=== PATIENT | female | born 1990 | race African-American/Black ===

== ENCOUNTER → 2024-08-31 08:42 | Outpatient (CLI) | payer OTHER, SELFPAY ==
[2024-08-31 15:06] LABS: Urine N gonorrhoeae NOT DETECTED
[2024-08-31 15:07] LABS: Urine Chlamydia NOT DETECTED
== END ==
PROVIDERS: Visit Provider Specialist
DX: Z34.81 Encounter for supervision of other normal pregnancy, first trimester (principal); Z3A.13 13 weeks gestation of pregnancy; Z11.3 Encounter for screening for infections with a predominantly sexual mode of transmission
CPT/HCPCS: 87491; 87591

== ENCOUNTER → 2024-08-31 09:01 | Outpatient (CLI) | payer OTHER, SELFPAY ==
[2024-08-31 10:35] LABS: Natera Collection Specimen Collected
[2024-08-31 10:44] LABS: Add Manual Diff / Slide Review NO; Basophils Absolute Auto 0 /uL (0-100); Basophils Percent Auto 0.3 % (0-2); Eosinophils Absolute Auto 100 /uL (0-450); Hematocrit 35.4 % (36-46); Hemoglobin 11.3 g/dL (12.0-16.0); Lymphocytes Absolute Auto 1600 /uL (1100-4500); Mean Corpuscular HGB Conc 31.8 % (30-36); Mean Corpuscular Hemoglobin 24.1 PG (26-34); Mean Corpuscular Volume 75.6 fL (80-100); Monocytes Absolute Auto 400 /uL (0-900); Monocytes Percent Auto 6.4 % (3-14); Neutrophils Absolute Auto 4400 /uL (1500-7000); Neutrophils Percent Auto 67.3 % (50-75); Platelet Count 270 X10^3/uL (150-400); Red Blood Cell Count 4.68 X10^6/uL (4.0-5.2); Red Cell Distribution Width 14.4 % (11.6-14.8); White Blood Cell Count 6.5 X10^3/uL (4.5-11.0)
[2024-08-31 11:05] LABS: Alanine Aminotransferase 13 IU/L (<35); Aspartate Aminotransferase 25 IU/L (14-36); BUN Creatinine Ratio 9.1 (6-22); Blood Urea Nitrogen 4 mg/dL (7-17); Estimated Glomerular Filt Rate > 60 mL/min (>60); Uric Acid 3.5 mg/dL (2.5-6.2)
[2024-09-01 05:15] LABS: RPR Screen Non Reactive (Non Reactive)
[2024-09-01 08:36] LABS: Varicella IgG Antibody Reactive (Non Reactive)
[2024-09-01 15:24] LABS: HIV 1 & 2 Ab/Ag 4th Gen Combo NEGATIVE (NEGATIVE); Hep C Virus Ab w/Reflex Quant NEGATIVE s/c (NEGATIVE); Hepatitis B Surface Antigen NEGATIVE s/c (NEGATIVE)
== END ==
PROVIDERS: Referring Provider Family Medicine; Visit Provider Family Medicine
DX: O09.521 Supervision of elderly multigravida, first trimester (principal); O09.299 Supervision of pregnancy with other poor reproductive or obstetric history, unspecified trimester; O30.009 Twin pregnancy, unspecified number of placenta and unspecified number of amniotic sacs, unspecified trimester; Z11.3 Encounter for screening for infections with a predominantly sexual mode of transmission; Z3A.13 13 weeks gestation of pregnancy
CPT/HCPCS: 80055; 82565; 84450; 84460; 84520; 84550; 86787; 86803; 86850; 86900; 86901; 87389; 87491; 87591

== ENCOUNTER → 2024-09-29 09:12 | Outpatient (CLI) | payer OTHER, SELFPAY ==
[2024-09-30 14:40] LABS: Candida species Positive (Negative); Gardnerella vaginalis Negative (Negative); Trichomoas vaginalis Negative (Negative)
== END ==
PROVIDERS: Visit Provider Obstetrics & Gynecology
DX: O30.041 Twin pregnancy, dichorionic/diamniotic, first trimester (principal); N89.8 Other specified noninflammatory disorders of vagina; Z3A.17 17 weeks gestation of pregnancy
CPT/HCPCS: 87480; 87510; 87660

== ENCOUNTER → 2024-10-12 13:31 | Outpatient (CLI) | payer OTHER, SELFPAY ==
--- NOTE | 2024-10-12 13:32 | DI.US.S_ITS ---
PROCEDURE: US OB >= 14 WK FETUS ADD GEST INDICATIONS: 20 Week Anatomy Scan OUTSIDE/PRIOR DATING DATA: Dating not available at time of dictation. Possible UD of 03/05/2025 based on 1st ultrasound. TECHNIQUE: Real-time scanning was performed of the fetuses, with image documentation and biometric measurements. Endovaginal scanning: Not performed COMPARISON: [facility], US, US OB >= 14 WEEKS FETUS, 09/29/2024, 8:58. FINDINGS: General: An intrauterine dichorionic-diamniotic twin is present, as evidenced by separate placentas, differing sexes, or an intervening membrane of greater than 2 mm. Maternal cervical canal: 5.3 cm long. Normal lower limit is 2.5 cm. FETUS A: Fetus is located on the maternal right side, and is in vertex presentation. Largest amniotic fluid pocket: 6.5 cm, normal is 2-8 cm. Placental position is posterior , without previa. heart rate: 175 beats per minute. biometrics: Biparietal diameter: 4.6 cm, 20 weeks 0 days Head circumference: 16.6 cm, 19 weeks 2 days Abdominal circumference: 14.9 cm, 20 weeks 1 day Femur length: 3.0 cm, 19 weeks 2 days Clinically estimated gestational age: 19 weeks 4 days Composite gestational age from present scan: 19 weeks 5 days Estimated weight and percentile: 309 g, 54 percentile FETUS B: Fetus is located on the maternal left side, and is in vertex presentation. Largest amniotic fluid pocket: 8.7 cm, normal is 2-8 cm. Placental position is posterior, without previa. heart rate: 132 beats per minute. biometrics: Biparietal diameter: 4.6 cm, 20 weeks 0 days Head circumference: 19.6 cm, 19 weeks 4 days Abdominal circumference: 15.0 cm, 20 weeks 0 days Femur length: 3.0 cm, 19 weeks 2 days Clinically estimated gestational age: 19 weeks 4 days Composite gestational age from present scan: 19 weeks 6 days Estimated weight and percentile: 312 g, 57 percentile IMPRESSION: Dichorionic, diamniotic large gestational . Estimated weight of twin a is 309 g, corresponding to 54 percentile. Estimated weight of twin B is 312 g, corresponding to 57 percentile. We strive to produce accurate, complete, and clear reports of imaging services. To assist us in improving patient care, this report was composed using standard report templates and voice recognition software. Therefore, it may contain abnormal punctuation, insertions and/or omissions. Occasional wrong-word or sound-alike substitutions may occur. Though we review the report and make efforts to correct it, we do recommend that the report be read carefully in proper context to recognize any text inaccuracies. Dictated by: Waldemar Barrera M.D. on 10/13/2024 at 15:27 Approved by: Waldemar Barrera M.D. on 10/13/2024 at 15:46
--- NOTE | 2024-10-12 15:08 | PC.NURSE ---
Rapid response called while patient was flat on her back during an ultrasound. rapid repsonse team arrived . pt was clammy and sweaty. initial vital sings Heart rate 61, resp rate 14, sats 99 percent on room air. blood glucose 90. repeat bp 103/59. Pt was sat up and started to feel better. Oj given to patient. pt declined being seen in the ER. AAOX4
== END ==
LOC: US 13:32
PROVIDERS: Referring Provider Obstetrics & Gynecology; Visit Provider Obstetrics & Gynecology
DX: O30.042 Twin pregnancy, dichorionic/diamniotic, second trimester (principal); Z3A.19 19 weeks gestation of pregnancy
CPT/HCPCS: 76811; 76812

== ENCOUNTER → 2024-11-18 09:50 | Outpatient (CLI) | payer OTHER, SELFPAY ==
[2024-11-18 11:29] LABS: Hemoglobin 10.3 g/dL (12.0-16.0)
[2024-11-18 11:46] LABS: GTT (PREG) 1 Hour PP 50gm Dose 89 mg/dL (76-139)
== END ==
PROVIDERS: Referring Provider Obstetrics & Gynecology; Visit Provider Obstetrics & Gynecology
DX: Z34.82 Encounter for supervision of other normal pregnancy, second trimester (principal); Z3A.26 26 weeks gestation of pregnancy
CPT/HCPCS: 36415; 82950; 85014; 85018

== ENCOUNTER → 2025-02-03 10:34 | Outpatient (CLI) | payer OTHER, SELFPAY ==
[2025-02-04 12:23] LABS: Strep Grp B PCR POS for Grp B Strep
== END ==
PROVIDERS: Visit Provider Obstetrics & Gynecology
DX: Z36.85 Encounter for antenatal screening for Streptococcus B (principal)
CPT/HCPCS: 87653

== ENCOUNTER 2025-02-03 11:07 | Outpatient (CLI) | payer OTHER, SELFPAY | END 2025-02-03 11:55 | disposition home or self-care (01) | LOC: LABOR 11:26 → OB 13:06 | PROVIDERS: Referring Provider Obstetrics & Gynecology; Visit Provider Obstetrics & Gynecology | DX: O09.523 Supervision of elderly multigravida, third trimester (principal); O30.003 Twin pregnancy, unspecified number of placenta and unspecified number of amniotic sacs, third trimester; Z3A.35 35 weeks gestation of pregnancy; Z36.85 Encounter for antenatal screening for Streptococcus B | CPT/HCPCS: 59025; 87653; G0378; G0379 ==

== ENCOUNTER 2025-02-22 06:33 | Inpatient (IN) | payer OTHER, SELFPAY ==
[2025-02-22 07:01] LABS: Add Manual Diff / Slide Review NO; Basophils Absolute Auto 100 /uL (0-100); Basophils Percent Auto 0.9 % (0-2); Eosinophils Absolute Auto 100 /uL (0-450); Eosinophils Percent Auto 1.1 % (2-4); Hematocrit 35.9 % (36-46); Hemoglobin 11.5 g/dL (12.0-16.0); Lymphocytes Absolute Auto 1900 /uL (1100-4500); Lymphocytes Percent Auto 30.2 % (25-40); Mean Corpuscular Hemoglobin 24.3 PG (26-34); Monocytes Absolute Auto 600 /uL (0-900); Monocytes Percent Auto 9.3 % (3-14); Neutrophils Absolute Auto 3600 /uL (1500-7000); Neutrophils Percent Auto 58.5 % (50-75); Platelet Count 143 X10^3/uL (150-400); Red Blood Cell Count 4.72 X10^6/uL (4.0-5.2); Red Cell Distribution Width 14.1 % (11.6-14.8); White Blood Cell Count 6.1 X10^3/uL (4.5-11.0)
[2025-02-22 07:12] VITALS: BP 126/86
--- NOTE | 2025-02-22 08:25 | SUR.OPER ---
Supine on Padded OR bed, head on pillow, safety belt at thigh, arms secured on padded arm boards at <90 degrees abduction. Bump under right buttock. Legs uncrossed with pillow under knees, gel pad to heels, tape over blanket to lower legs.
--- NOTE | 2025-02-22 08:39 | PM.PREOP ---
Pre-operative Note Interval Note History & Physical reviewed/Exam performed by Physician: Yes Changes to H&P: No
--- NOTE | 2025-02-22 08:39 | PM.OBHP.IH.1 ---
OB HPI Date/Time Date of admission: 02/22/25 Date Patient Seen: 02/22/25 Time Patient Seen: 08:39 History of Present Condition Chief complaint: Repeat MINAL Calculator Estimated Delivery Date Method Current WG Current Estimate 03/04/25 LMP (Certain) 38w 4d Other Estimates 03/05/25 Ultrasound #1 38w 3d # 2 Estimated Gestational Age (weeks): 38 : 6 Para: 3 care: good care, initiated at week # (1), number of visits (10) and pounds weight gain (31) Dating criteria OB: LMP confirmed by 1st trimester US Ultrasounds: normal mid trimester US Obstetrical complications: none Medical complications OB: none External History : 6 Para: 3 Estimated Date of Delivery: 03/04/25 Narrative: 34-year-old 6 para 3 EDC 03/04 at 38 weeks 4 days with dichorionic diamniotic twin gestation here for repeat section Indications Operative indications ( section): previous uterine surgery Preadmission Labs Last OB Lab Results: Blood Type O Positive 02/22/25 06:50 Antibody Screen Negative 02/22/25 06:50 Hct 35.9 % (36-46) L 02/22/25 06:50 Hgb 11.5 g/dL (12.0-16.0) L 02/22/25 06:50 Hep Bs Antigen Negative s/c (NEGATIVE) 08/31/24 09:35 Hepatitis C Antibody Negative s/c (NEGATIVE) 08/31/24 09:35 Rubella Antibody 256.0 IU/mL (>15) 08/31/24 09:35 VZV IgG Antibody Reactive (Non Reactive) 08/31/24 09:35 Glucose 1 Hr 50 gm 89 mg/dL (76-139) 11/18/24 11:07 Group B Strep (PCR) Pos for grp b strep H 02/03/25 10:34 -: Chlamydia screen: negative and Gonorrhea screen: negative Genetic Screens: Cell-free DNA: Normal Prior (ies) Past Pregnancies Del. Date GA/Weeks Labor Lgth Wt Sex Route Outcome Anesthesia Place Delv Breastfeed Preg Comp Name 11/23/11 8 elective 07/19/16 38.5 18 7 lb 7 oz Male live - full term epidural [place] 22 months none Hans 08/28/18 40+ 18 6 lb 8 oz Female vaginal live - full term epidural [facility] 20 months none [place] 01/21/19 ~8 elective 10/03/20 37.3 Male live - full term spinal [facility] 6 and 13 months multiple gestation induced hyper- pre-eclampsia other [place] and [place] Delivery Date: 11/23/11 Last Updated by: Nika Harris RN Rx only, no complications Delivery Date: 07/19/16 Last Updated by: Nika Harris RN C/S for OP and FTP Delivery Date: 08/28/18 Last Updated by: Nika Harris RN Delivery Date: 01/21/19 Last Updated by: Nika Harris RN Rx only, no complications Delivery Date: 10/03/20 Last Updated by: Nika Harris RN HTN onset 37 wk->semi-urgent C/S, preeclampsia onset 1 week PP admitted for 5 days, resolved spontaneously ~5-7 days after DC. Baby A 5lb6oz and 5lb4oz; anxiety Hx # Term Pregnancies: 3 Hx # Pregnancies: 0 Number of Living Children: 4 Multiple births: 1 Spontaneous abortions: 2 Ectopic pregnancies: 0 Evaluation Evaluation Baseline heart rate: 120 (Both) Variability: Moderate (11-25) (Both) monitor accelerations: Present (Both) Monitor Decelerations: Absent (Both) Contraction Frequency (minutes): 10 Uterine Contraction Intensity: Mild Category of Tracing: Reactive Status: Category l PFSH Surgical History (Updated 08/31/24 @ 09:03 by Khushbu Langford MD) Previous section History of appendectomy Family History (Updated 08/18/24 @ 09:37 by Nika Harris RN) Mother Hypertension Father Hypertension Grandfather Diabetes mellitus Social History marital status: number of children: 4 household members: spouse and children lives independently: Yes housing: house pets and animals: No education level: college (bachelor's degree) occupational status: unemployed current occupational exposures/hazards: No special tommy needs: No travel history: over 6 months ago seatbelt use: always water heater temp set < 120 deg: Yes working smoke detector in home: Yes fire extinguisher in home: No carbon monox detector in home: Yes firearms in home: No do you feel safe at home: Yes Smoking Status: Never smoker second hand exposure: No alcohol intake: former (rarely when not ) substance use type: does not use during the past year weight has: remained stable well-balanced diet: daily or most days daily servings fruits/ve or more times/day caffeine: Yes (aware of 200mg limit) Type(s) of exercise: walking frequency: daily Meds Home Medications and Allergies Home Medications Medication Instructions Recorded Confirmed Type aspirin 81 mg tablet,delayed 81 mg PO DAILY 08/18/24 02/17/25 History release vitamin-ferrous sulfate tab PO 08/18/24 02/17/25 History 27 mg iron-folic acid 0.8 mg tablet fluconazole 150 mg tablet 150 mg PO ONCE #1 tab 11/10/24 02/17/25 Rx Allergies Allergy/AdvReac Type Severity Reaction Status Date / Time No Known Drug Allergies Allergy Verified 02/22/25 07:20 Review of Systems Review of Systems Narrative: Patient denies headaches, scotomata, epigastric pain. Good movement. No leakage of fluid. No vaginal bleeding. OB Exam Vital signs Blood Pressure: 126/86 Pulse Rate: 83 Temperature: 98.3 F Narrative Exam Narrative: HEENT exam within normal limits. Lungs are clear to auscultation percussion. Heart is regular rate and rhythm no S3-S4 or murmurs. Abdomen is gravid. Extremities without edema and nontender Objective Labs 02/22/25 06:50 Labs: Laboratory Results - last 24 hr 02/22/25 06:50 WBC 6.1 RBC 4.72 Hgb 11.5 L Hct 35.9 L MCV 76.0 L MCH 24.3 L MCHC 32.0 RDW 14.1 Plt Count 143 L Neut % (Auto) 58.5 Lymph % (Auto) 30.2 [place] % (Auto) 9.3 Eos % (Auto) 1.1 L Baso % (Auto) 0.9 Neut # (Auto) 3600 Lymph # (Auto) 1900 [place] # (Auto) 600 Eos # (Auto) 100 Baso # (Auto) 100 Blood Type O Positive Antibody Screen Negative Assessment and Plan Assessment and Plan Assessment and Plan narrative: 38 weeks 4 days' twin gestation with prior section for repeat low-transverse section Time-Based Coding :: [TOTAL MINUTES] spent with patient and on the chart (including review of chart, obtaining history, exam, reviewing outside data, placing orders, documenting exam and treatment plan, and counseling patient) on [DATE].
[2025-02-22 08:44] VITALS: BP 126/86; PULSE 83; TEMP 36.8
[2025-02-22] MEDS: CEFAZOLIN 2 GM/100 ML PREMIX 100 ML IV (09:00)
--- NOTE | 2025-02-22 09:53 | SUR.OPER ---
Viable twin babies born. Baby A born at 0928 on 02/22/2025. Baby B born at 0932 on 02/22/2025.
--- NOTE | 2025-02-22 10:11 | P.OP_ITS ---
Operative Date/Time/Diagnoses Date of procedure: 02/22/25 Time of procedure: 10:12 Pre-op diagnosis: 38 week gestation with dichorionic diamniotic twin gestation and prior section Post-op diagnosis: same Procedure & Clinicians Procedure: Repeat low-transverse section Same procedure as scheduled: Yes Indications: Term twin gestation with prior section Surgeon: Khushbu Langford Senior Training And Development Rep: Michelle Teresa Reason for Senior Training And Development Rep: Incision traction, fundal pressure, suturing half the incision Anesthesia Type: Spinal Operative Notes Findings: Normal tubes, ovaries, uterus. Viable male and female infants. Closure Type: primary Specimen(s): cord blood Intraoperative meds administered: Pitocin Applied: Catheter (Avelar) Estimated Blood Loss (mL): 1,000 Procedure in detail: The patient was brought to the operating room where she underwent a spinal for anesthesia. She was placed in a supine position with a left lateral tilt. A Avelar catheter was placed. Pulsatile stockings were placed and functional throughout the case. 2 g of Ancef were given IV prior to the incision. Warming was in place. The patient was prepped and draped in usual sterile fashion. A low transverse incision was made with a scalpel removing the 2 prior incisions and the incision was carried down to the fascial layer which was incised transversely with scissors. The medical assistant float did her side of the incision. The midline attachments are superiorly and inferiorly. Some bleeding was controlled Bovie. The rectus muscles were in the midline and the peritoneal incision was made with no damage to internal structures. The peritoneum was incised and superiorly and inferiorly. The incision was stretched with the surgeon and medical assistant float placing traction. Bladder blade was placed and a bladder flap was developed and the bladder held away from the lower uterine segment. An incision was made in the uterus with the scalpel and the incision was extended with stretching. Baby A, male fetus, bag of water was ruptured for clear fluid and head was elevated out of the abdomen and with fundal pressure by the medical assistant float the baby was delivered. The infant was bulb suctioned for clear fluid. After 1 minute of delayed cord clamping the infant was handed off to the warmer. Baby B, female fetus, was pushed externally to vertex position and the bag of water ruptured. Due to some dystocia with the incision a vacuum was placed on the infant to deliver the . After 1 minute delayed cord clamping the cord was cut and the infant handed off to the warmer. Cord bloods were obtained from each cord. The placenta delivered spontaneously with traction. The uterus was cleaned with clean laps. The uterine incision was closed in 2 layers of 0 chromic suture the first a running locking layer the second an imbricating layer. The medical assistant float was helping to expose the incision. Some bleeding was controlled with 2 0 Vicryl suture. The bladder peritoneum was repaired with 2-0 Vicryl suture. The gutters were cleaned of any remaining fluids and ovaries and tubes were observed to be normal. Adequate hemostasis was noted. Bleeding controlled with the Bovie and suture. The perineum was closed with 2-0 Vicryl suture. The fascia layer was closed with 0 Vicryl suture with 2 stitches. The medical assistant float repairing half the incision with helping to retract and expose the incision for the other half. The incision was irrigated and adequate hemostasis noted. The incision was closed with interrupted 3-0 Vicryl sutures and then a subcuticular stitch of 4-0 Vicryl suture. Steri-Strips were placed. The uterus was massaged to remove any clots. The patient went to recovery room in good condition. Counts of instruments and sponges were correct. Dr. Teresa was present throughout the case to assist with retraction, fundal pressure to deliver the infant, and suturing half the fascia. [place] Baby 1: Delivery Date: 02/22/25 Delivery Time: 09:28 Gender: Male Presentation: vertex Cord Vessel Description: Nuchal Cord score (1 min): 9 score (5 min): 9 2: Delivery Date: 02/22/25 Delivery Time: 09:32 Gender: Female Presentation: vertex Placental Delivery Description: Expressed score (1 min): 7 score (5 min): 9 Post-operative Condition: stable Disposition: other ( Center) Aftercare: routine postop
[2025-02-22 10:46] VITALS: BP 109/78; PULSE 86; RESP 20; TEMP 36.2; O2SAT 100
[2025-02-22 10:52] VITALS: BP 113/67; PULSE 87; RESP 25; O2SAT 100
[2025-02-22 10:57] VITALS: BP 96/66; PULSE 89; RESP 20; TEMP 36.2; O2SAT 100
[2025-02-22] MEDS: KETOROLAC 30 MG/ML VIAL IV (20:35)
[2025-02-22] MEDS: diphenhydrAMINE 50 MG/ML VIAL 25 MG IV (20:40)
[2025-02-23] MEDS: KETOROLAC 30 MG/ML VIAL IV (05:45)
[2025-02-23 06:45] LABS: Add Manual Diff / Slide Review NO; Basophils Absolute Auto 100 /uL (0-100); Basophils Percent Auto 0.5 % (0-2); Eosinophils Absolute Auto 100 /uL (0-450); Eosinophils Percent Auto 0.7 % (2-4); Hematocrit 30.3 % (36-46); Hemoglobin 9.7 g/dL (12.0-16.0); Lymphocytes Absolute Auto 2000 /uL (1100-4500); Lymphocytes Percent Auto 17.3 % (25-40); Mean Corpuscular HGB Conc 32.1 % (30-36); Mean Corpuscular Hemoglobin 24.2 PG (26-34); Mean Corpuscular Volume 75.4 fL (80-100); Monocytes Absolute Auto 900 /uL (0-900); Monocytes Percent Auto 7.7 % (3-14); Neutrophils Absolute Auto 8600 /uL (1500-7000); Neutrophils Percent Auto 73.8 % (50-75); Platelet Count 145 X10^3/uL (150-400); Red Blood Cell Count 4.02 X10^6/uL (4.0-5.2); Red Cell Distribution Width 14.4 % (11.6-14.8); White Blood Cell Count 11.6 X10^3/uL (4.5-11.0)
--- NOTE | 2025-02-23 07:48 | PM.OBPN.1 ---
Subjective - OB Subjective Patient comments: pain well controlled and tolerating diet [place] baby status: doing well and nursing well [place] feeding status: exclusively breast feeding Date Patient Seen: 02/23/25 Time Patient Seen: 07:49 Interval history: Postoperative day 1 repeat section. The patient is ambulatory. No nausea. She is . Exam Vital Signs (past 8 hours): Blood pressure 117/77, pulse 57, temperature 36.2? Oxygen Delivery Method Room Air Narrative Exam Narrative: Abdomen is soft, nontender. Uterus is firm, U + 2, nontender. Dressing is clean, dry, intact. There is some evidence of some bleeding on the Aquacel dressing but stable. Objective Labs 02/23/25 06:30 Labs: Laboratory Results - last 24 hr 02/23/25 06:30 WBC 11.6 H D RBC 4.02 Hgb 9.7 L Hct 30.3 L MCV 75.4 L MCH 24.2 L MCHC 32.1 RDW 14.4 Plt Count 145 L Neut % (Auto) 73.8 Lymph % (Auto) 17.3 L [place] % (Auto) 7.7 Eos % (Auto) 0.7 L Baso % (Auto) 0.5 Neut # (Auto) 8600 H Lymph # (Auto) 2000 [place] # (Auto) 900 Eos # (Auto) 100 Baso # (Auto) 100 Assessment & Plan Assessment and Plan (1) Delivery by section using transverse incision of lower segment of uterus: Status: Acute (2) Dichorionic diamniotic twin gestation: Status: Acute (3) History of section complicating : Status: Acute Assessment and plan: Patient is doing well post section. Plan plan OB: routine postop care Time-Based Coding :: [TOTAL MINUTES] spent with patient and on the chart (including review of chart, obtaining history, exam, reviewing outside data, placing orders, documenting exam and treatment plan, and counseling patient) on [DATE].
[2025-02-23] MEDS: IBUPROFEN 600 MG TABLET PO ×3 (10:34→22:23)
[2025-02-23] MEDS: ACETAMINOPHEN 325 MG TABLET 650 MG PO ×3 (10:35→22:23)
[2025-02-23] MEDS: DOCUSATE 100 MG CAPSULE PO (10:35)
[2025-02-23] MEDS: PRENATAL VIT,CALC/IRON/FOLIC 1 TABLET 1 TAB PO (10:35)
[2025-02-23] MEDS: FERROUS SULFATE 325 MG TABLET PO (10:35)
[2025-02-23] MEDS: LANOLIN OINT 7 GM 1 APPLIC TOP (10:36)
[2025-02-23] MEDS: OXYCODONE IR 5 MG TABLET PO (23:31)
[2025-02-24] MEDS: IBUPROFEN 600 MG TABLET PO (05:44)
--- NOTE | 2025-02-24 07:51 | P.DS_ITS ---
Discharge Providers Provider Date of admission: 02/22/25 06:33 Discharge Date: 02/24/25 Primary care physician: Shameka Kevin MD Consults: 02/22/25 11:10 Consult to Support Group Manager Routine Comment: Discharge provider: Khushbu Langford MD Summary Hospital Course Date Patient Seen: 02/24/25 Time Patient Seen: 07:53 Diagnoses: 38 week twin gestation with prior sections Hospital Course: Patient underwent a repeat low-transverse section on 02/22/25. The viable male and female infants are doing well. She is . She is passing gas and urinating and ambulating well. She is having incisional pain. Mild lochia. Peripartum Data Infant Delivery Method: Section (Repeat) complications: none 1: Gender: Male Disposition of : home 2: Gender: Female Disposition of : home Discharge Diagnosis (1) Delivery by section using transverse incision of lower segment of uterus: Status: Acute (2) Dichorionic diamniotic twin gestation: Status: Acute (3) History of section complicating : Status: Acute Status at Discharge Cognitive/behavioral status at discharge: oriented Functional status at discharge: independent ambulation Overall status at discharge: patient is progressing back to baseline Time Spent with Patient Time attestation: Total time spent providing and/or coordinating discharge services: Time spent: Less than 30 minutes Objective Labs 02/23/25 06:30 Exam Vital Signs (past 8 hours): Blood pressure 109/70, pulse of 66, temperature 36.4? Oxygen Delivery Method Room Air Narrative Exam Narrative: Abdomen is soft, nontender. Uterus is firm, U +1, nontender. Dressing is clean, dry, intact. Mild lochia. Extremities with trace edema and nontender. Discharge Plan Discharge Plan Patient Disposition: Home Discharge orders & Medications Prescriptions: New ferrous sulfate 325 mg (65 mg iron) Tablet 325 mg PO DAILY Qty: 30 0RF docusate sodium 100 mg Capsule 100 mg PO DAILY Qty: 20 0RF ibuprofen 600 mg Tablet 600 mg PO Q6H Qty: 30 0RF oxycodone 5 mg Tablet 5 mg PO Q4H PRN (Reason: Pain, Moderate (4-6)) Qty: 20 0RF Continued vit-ferrous sulfat-FA 27 mg iron- 0.8 mg tablet PO Discontinued fluconazole 150 mg tablet 150 mg PO ONCE Qty: 1 0RF aspirin 81 mg tablet,delayed release (DR/EC) 81 mg PO DAILY Rx Instructions: Starting at 12 wk EGA No Action (DME) Double Electric Breast Pump See Rx Instructions .ROUTE .MEDSUPPLY Qty: 1 0RF Rx Instructions: As directed Follow up/Referrals: Khushbu Langford MD [Physician] - 03/01/25 10:15 am (Please follow-up for your 1 week incision check on February at 10:15 pm. Please arrive at 10:00 am!) Michelle Teresa MD [Physician] - 04/05/25 9:45 am (Please follow-up for your 6 week appointment on Saturday April 05, 2025 at 9:45 am. Please arrive at 9:30 am!) Diet/Activity/Treatments Diet: Regular Activity: Do not lift over [address] anything in your vagina for 6 weeks Skin/Wound/Dressing Care Report to your healthcare provider any signs of infection, such as:: chills, fever and increased pain Dressing: Leave dressing on until one-week post op appointment Visit Report/Discharge Packet Instructions: DI for Prescription Opioid Use Stand Alone Forms: Patient Portal/API, Stroke Signs & Symptoms Discharge Data Primary Care Provider: Shameka Kevin
[2025-02-24] MEDS: PRENATAL VIT,CALC/IRON/FOLIC 1 TABLET 1 TAB PO (09:04)
[2025-02-24] MEDS: DOCUSATE 100 MG CAPSULE PO (09:04)
[2025-02-24] MEDS: FERROUS SULFATE 325 MG TABLET PO (09:04)
[2025-02-24] MEDS: ACETAMINOPHEN 325 MG TABLET 650 MG PO (09:04)
== END 2025-02-24 13:20 | disposition home or self-care (01) | DRG 788 ==
PROVIDERS: Specialist; Admitting Provider Obstetrics & Gynecology; PCP Family Medicine; Referring Provider Obstetrics & Gynecology; Visit Provider Obstetrics & Gynecology
PROC: (CPT 59514; principal; 2025-02-22 08:45)
DX: O34.211 Maternal care for low transverse scar from previous cesarean delivery (principal); Z37.2 Twins, both liveborn; Z3A.38 38 weeks gestation of pregnancy; O99.824 Streptococcus B carrier state complicating childbirth
CPT/HCPCS: 36415; 59050; 59510; 59514; 85025; 86850; 86900; 86901; J0461; J0690; J1100; J1200; J1885; J2274; J2405